=== PATIENT | female | born 1985 | race Caucasian/White ===

== ENCOUNTER 2025-03-22 09:15 | Emergency (ER) | payer OTHER, SELFPAY ==
[2025-03-22 09:27] VITALS: BP 132/78
--- NOTE | 2025-03-22 10:20 | ED.GENMED ---
History of Present Illness
General
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
Time Seen by Provider: 03/22/25 10:04
History of Present Illness
History of Present Illness:
39-year-old female presents to the emergency department for evaluation of persistent vaginal bleeding for the past month. She states she has had some menstrual irregularity recently but has never had bleeding as long as this. Going through several
pads daily but they are not typically fully saturated. Does report some fatigue but no overt dizziness or shortness of breath with exertion. Not on anticoagulants.
Review of Systems
Review of Systems
Allergies reviewed?: Yes
All Other Systems: ROS reviewed and negative except as documented in HPI and ROS
Phy Exam
Physical Exam
Physical Exam:
GEN: Well appearing, NAD, WDWN
HEENT: Oral mucosa moist, no scleral icterus
Cardiac: Regular rate
Lung: No respiratory distress, no tachypnea
Abdomen: Soft, grossly nontender
MSK: No gross deformity or injuries
Skin: Good color, no pallor or jaundice, no rashes
Neuro: AO x3, moves all extremities freely
Psych: Calm, cooperative
Course
Orders/Labs/Results
Orders:
Orders
03/22/25 10:20
Test Result ONCE
03/22/25 10:37
Complete Blood Count/No Diff Urgent
Comprehensive Metabolic Panel Urgent
HCG, Serum Qualitative Screen Urgent
Abnormal Lab Results
03/22/25
10:37
WBC 3.4 L 10^3/uL
(4.8-10.8)
RBC 3.89 L 10^6/uL
(4.20-5.40)
Hgb 11.6 L g/dL
(12.0-16.0)
Hct 35.0 L %
(37.0-47.0)
RDW 15.0 H %
(11.5-14.5)
MPV 10.8 H fL
(7.4-10.4)
03/22/25 10:37
03/22/25 10:37
Vital Signs
Initial and Last Documented VS:
Initial Vital Signs
Temp Pulse Resp BP Pulse Ox
98.2 F 88 16 132/78 99
03/22/25 09:27 03/22/25 09:27 03/22/25 09:27 03/22/25 09:27 03/22/25 09:27
Last Documented Vital Signs
Temp Pulse Resp BP Pulse Ox
98.2 F 69 16 109/69 98
03/22/25 09:27 03/22/25 11:58 03/22/25 11:58 03/22/25 11:58 03/22/25 11:58
MDM/Problems Addressed
MDM/Problems Addressed:
Patient's hemoglobin is only minimally decreased, I have recommended she consider iron supplementation particularly while actively bleeding. She has no tenderness on exam I have a low clinical suspicion for significant ovarian or uterine pathology
that would warrant an ultrasound at this time. Will refer her to [facility] as an outpatient and provide TXA if bleeding worsens on an as needed basis for maximum of 5 days. Patient is comfortable with this plan
*Pulse Oximetry
SaO2: 99
Oxygen Mode of Delivery: Room air
Patient hypoxic: no
*Critical Care Note
Total Time (30-74mins, 75-104mins- exclusive of procedures): Not Applicable
ED Attending Note
-
Portions of this chart may have been created with voice recognition software.� Occasional wrong word or��sound alike� substitutions may have occurred due to the inherent limitations of voice recognition software.
Discharge Plan
Departure
Patient Disposition: Home (Routine Discharge)
Date of Disposition: 03/22/25
Time of Disposition: 11:22
Patient with high blood pressure during this ER visit?: No
Discharge Problem:
DUB (dysfunctional uterine bleeding)
Instructions: Heavy periods - ED (DC)
Prescriptions:
New
tranexamic acid 650 mg tablet
650 - 1,300 mg PO Q8H PRN (Reason: heavy bleeding) 5 Days Qty: 30 0RF
Referrals:
Susi Alberto MD [Active, Gynecology] - Call in 1-3 days for appt
Vicky Trimble NP [Family Provider]
Interventions
Interventions:
*Risk Screen - Suicide Last Done: 03/22/25 09:19
*General Assessment Last Done: 03/22/25 09:19
*Neglect/Abuse Screening Last Done: 03/22/25 09:19
*ED- Fall Risk Assessment Last Done: 03/22/25 10:26
*ED COVID-19 Vaccine History Last Done: 03/22/25 10:26
*ED Influenza Vaccine History Last Done: 03/22/25 10:26
*Nursing Disposition Last Done: 03/22/25 11:58
ED-Female Genitourinary Assessment Last Done: 03/22/25 10:26
Discharge Date and Time
Discharge Date/Time: 03/22/25 11:45
Print Language: IRISH
[2025-03-22 10:25] VITALS: BP 116/74
[2025-03-22 10:26] VITALS: BMI 25.0
[2025-03-22 10:27] VITALS: BP 116/74
[2025-03-22 10:47] LABS: Hematocrit 35.0 % (37.0-47.0); Hemoglobin 11.6 g/dL (12.0-16.0); Mean Corp Hgb Conc. 33.1 g/dL (33.0-37.0); Mean Corpuscular Volume 90.0 fL (81.0-99.0); Platelet Count 216 10^3/uL (130-400); Red Cell Dist. Width 15.0 % (11.5-14.5)
[2025-03-22 11:00] VITALS: BP 109/69
[2025-03-22 11:14] LABS: ALT (SGPT) 28 U/L (0-35); AST (SGOT) 34 U/L (14-36); Albumin 4.7 g/dl (3.5-5.0); Alkaline Phosphatase 61 U/L (38-126); Blood Urea Nitrogen 11 mg/dl (7-17); Calcium 9.5 mg/dl (8.4-10.2); Carbon Dioxide 28 mmol/L (22-30); Chloride 105 mmol/L (98-107); Estimated Creatinine Clearance 95 ml/min; Glucose 86 mg/dl (70-99); Potassium 4.4 mmol/L (3.5-5.1); Sodium 136 mmol/L (135-145); Total Protein 7.7 g/dl (6.3-8.2); eGFR > 60.00
--- NOTE | 2025-03-22 11:55 | EDRN ---
Discharge instructions given to patient by Joe Hopson PA-C.
[2025-03-22 11:57] LABS: HCG, Serum Qualitative Screen Negative
[2025-03-22 11:58] VITALS: BP 109/69
== END 2025-03-22 11:45 | disposition home or self-care (01) ==
LOC: EMR 09:15
PROVIDERS: Physician Assistant; EMERGENCY PHYSICIAN Student in an Organized Health Care Education/Training Program; FAMILY PHYSICIAN Nurse Practitioner Family
DX: N93.8 Other specified abnormal uterine and vaginal bleeding (principal)
CPT/HCPCS: 99283; 80053; 84703; 85027